=== PATIENT | male | born 1985 | race Caucasian/White ===

== ENCOUNTER 2023-08-25 10:08 | Emergency (ER) | payer OTHER ==
[~2023-08-25] VITALS: Ht 175.3 cm; Wt 75.0 kg
[2023-08-25 10:43] VITALS: TEMP 98.5
[2023-08-25] MEDS ORDERED: LIDOCAINE 1% 10 ML VIAL SQ ONE (13:15)
[2023-08-25 14:31] VITALS: BP 114/74; PULSE 79; RESP 16
== END 2023-08-25 14:55 | disposition home or self-care (01) ==
LOC: EMS 10:09
DX: S01.91XA Laceration without foreign body of unspecified part of head, initial encounter (principal); X58.XXXA Exposure to other specified factors, initial encounter; Y93.89 Activity, other specified; Y92.89 Other specified places as the place of occurrence of the external cause; Y99.8 Other external cause status
CPT/HCPCS: 99283; 73090; 12002; J3490

== ENCOUNTER 2023-09-05 13:26 | Emergency (ER) | payer OTHER ==
[~2023-09-05] VITALS: Ht 175.3 cm; Wt 68.2 kg
[2023-09-05 13:34] VITALS: BP 123/73; PULSE 84; RESP 18; TEMP 98
== END 2023-09-05 14:52 | disposition home or self-care (01) ==
LOC: EMS 13:56
DX: S01.91XD Laceration without foreign body of unspecified part of head, subsequent encounter (principal); Z88.2 Allergy status to sulfonamides; Z48.02 Encounter for removal of sutures; X58.XXXD Exposure to other specified factors, subsequent encounter
CPT/HCPCS: 99281; Z7502